=== PATIENT | female | born 1965 | race Caucasian/White ===

== ENCOUNTER → 2019-11-04 10:40 | Outpatient (BNVA) | payer MEDICARE, OTHER, SELFPAY | PROVIDERS: PCP Registered Nurse; Visit Provider Nurse Practitioner Family | DX: R35.0 Frequency of micturition (principal); N39.0 Urinary tract infection, site not specified; M25.569 Pain in unspecified knee; Z12.11 Encounter for screening for malignant neoplasm of colon; N63.0 Unspecified lump in unspecified breast | CPT/HCPCS: 81003; 87086 ==

== ENCOUNTER 2019-11-06 13:51 | Outpatient (CLI) | payer MEDICARE, OTHER, SELFPAY ==
--- NOTE | 2019-11-06 13:58 | XR_ITS ---
WS: [id number] Left knee, 3 views, 11/06/2019 Clinical Data: knee pain Comparison: None. Findings: No fractures or dislocations are seen. There is minimal narrowing of the medial joint compartment.. T he patella is intact. The soft tissues are unremarkable. There is a posterior superior patellar spur. XR/XR knee LT 3V* [id number] Impression: Minimal osteoarthritic change of the medial joint compartment and posterior pat alyssia.
== END 2019-11-06 13:52 | disposition home or self-care (01) ==
LOC: RAD 13:55
PROVIDERS: PCP Registered Nurse; Visit Provider Nurse Practitioner Family
DX: M25.562 Pain in left knee (principal)
CPT/HCPCS: 73562

== ENCOUNTER 2019-11-19 22:18 | Emergency (ER) | payer MEDICARE, OTHER, SELFPAY ==
[2019-11-19 22:34] VITALS: BP 206/119; PULSE 74; RESP 18; TEMP 37; O2SAT 97; BMI 48.1
--- NOTE | 2019-11-19 22:38 | W.ED.ABDPA2 ---
HPI - Abdominal Pain General: Chief Complaint: Abdominal Pain Stated Complaint: lower abd pain Time Seen by Provider: 11/19/19 22:34 Source: patient Mode of arrival: ambulatory Limitations: no limitations History of Present Illness: HPI narrative: Patient comes in today with pelvic pressure and discomfort. Patient states that for the last 2 to 3 days she has had this discomfort. Reports history of previous bladder ties. Patient appears well. Patient appears in mild discomfort. Review of Systems General: Reports: 10 or more systems reviewed and unremarkable except in HPI and below : Reports: pelvic pain PFS ED PFSH: Social History Smoking and tobacco status: never smoked Second hand smoke exposure: Yes Physical Exam Const: COMMON NORMALS: no apparent distress and oriented x3 GENERAL APPEARANCE: cooperative HENMT: COMMON NORMALS: normocephalic, external ears normal, EAC's normal, TM's normal bilaterally and external nose normal HEAD & SCALP: normal to inspection and normocephalic FACE & SINUS: normal facial exam NOSE: external nose normal GENERAL EAR: hearing not grossly impaired EXTERNAL EAR: Yes external ears normal EXTERNAL AUDITORY CANAL: EAC's normal TYMPANIC MEMBRANE: TM's normal bilaterally MOUTH: oral and palatal mucosa normal THROAT: posterior oropharynx normal Eye: COMMON NORMALS: PERRL and EOMs intact bilaterally PUPIL: Yes PERRL Neck/C-Spine: COMMON NORMALS: full ROM and no lymphadenopathy Lymph: LYMPHATIC: no lymphedema noted Chest: COMMONS NORMALS: inspection of chest normal and palpation of chest normal Resp: COMMON NORMALS: normal respiratory effort and clear to auscultation bilaterally AUSCULTATION: clear to auscultation bilaterally Cardio: COMMON NORMALS: regular rate and regular rhythm RATE: regular rate RHYTHM: regular rhythm GI: COMMON NORMALS: normal to inspection, nondistended, normoactive bowel sounds and non-tender : COMMON NORMALS: Yes no CVA tenderness and Yes bimanual exam normal (absent uterus) BLADDER/KIDNEY EXAM: Yes no CVA tenderness SPECULUM EXAM - VAGINA: Yes vaginal discharge (whitish mucous) BIMANUAL EXAM - VAGINA & UTERUS: Yes normal bimanual exam (absent uterus) BIMANUAL EXAM - ADNEXA, OTHER: Yes pelvic support normal Back/Pelvis: COMMON NORMALS: no CVA tenderness and thoracic and lumbar spine normal to inspection Extremity: COMMON NORMALS: normal to inspection GENERAL: No edema Neuro: COMMON NORMALS: oriented x3, moves all extremities and no focal motor deficits Psych: COMMON NORMALS: mental status grossly normal and cooperative Skin: COMMON NORMALS: no rashes or lesions noted GENERAL SKIN EXAM: no rashes or lesions noted Course Vital Signs: Vital signs: Vital Signs Temperature 98.0 F 11/20/19 00:57 Pulse Rate 65 11/20/19 00:57 Respiratory Rate 17 11/20/19 00:57 Blood Pressure 131/87 11/20/19 00:57 Pulse Oximetry 96 11/20/19 00:57 MDM - Abdominal Pain MDM Narrative: Medical decision making narrative: Patient comes in today with complaints of vaginal fullness and pressure. On exam we know whitish vaginal discharge, abdomen soft nontender, respirations are even lungs are clear to auscultation. Vital signs were normal. Differential diagnosis includes bladder prolapse, vaginal prolapse, vaginitis, urethritis, urinary tract infection. CBC was normal, CMP was normal, urinalysis was without sign of infection. Wet prep noted no trichomoniasis or yeast, but did show signs of bacterial vaginosis with clue cells. Reviewed exam with patient with recommendations for treatment with Flagyl and need for follow-up in 1 week with primary care. Patient reports understanding and agreed to plan. Lab Data: Labs: Lab Results 11/19/19 11/19/19 11/19/19 Range/Units 22:43 22:43 23:03 WBC 7.9 (4.0-10.0) 10^3/ uL RBC 4.43 (4.1-5.3) 10^6/u L Hgb 13.0 (11.5-15.3) g/dL Hct 40.2 (37.0-47.0) % MCV 90.7 (81-99) fL MCH 29.3 (28.0-34.0) pg MCHC 32.3 (30.0-36.0) g/dL RDW 12.7 (12.1-15.1) % Plt Count 205 (130-400) 10^3/c mm MPV 11.7 H (7.4-10.4) fL Neut % (Auto) 65.0 % Lymph % (Auto) 26.2 % [place] % (Auto) 6.1 % Eos % (Auto) 1.5 % Baso % (Auto) 0.8 % Neut # (Auto) 5.1 (1.8-7.7) 10^3/u L Lymph # (Auto) 2.1 (0.8-4.8) 10^3/u L [place] # (Auto) 0.5 (0.2-0.9) 10^3/u L Eos # (Auto) 0.1 (0.0-0.8) 10^3/u L Baso # (Auto) 0.1 (0.0-0.1) 10^3/u L Nucleated RBC % (a uto) 0 % Nucleated RBCs # 0.0 /100WBC Sodium 139 (136-145) mmol/L Potassium 4.1 (3.5-5.1) mmol/L Chloride 99 (98-107) mmol/L Carbon Dioxide 28 (22-29) mmol/L Anion Gap 16.1 (5-19) BUN 18 (6-20) mg/dL Creatinine 1.0 H (0.5-0.9) mg/dL GFR Calculation 57.4 L (90-130) mL/min Glucose 133 H (65-115) mg/dL Calcium 10.4 (8.5-10.5) mg/dL Total Bilirubin 0.3 (0.15-1.2) mg/dL AST 19 (0-32) U/L ALT 12 (0-33) U/L Alkaline Phosphata se 127 H (35-105) IU/L Total Protein 7.3 (6.6-8.7) g/dL Albumin 4.3 (3.5-5.2) g/dL Globulin 3.0 (1.3-4.6) g/dL Urine Color Yellow (Yellow) Urine Appearance Hazy A (CLEAR) Urine pH 5 (5-7) Ur Specific Gravit y 1.020 (1.005-1.030) Urine Protein Neg (Negative) Urine Glucose (UA) Norm (Normal) Urine Ketones Negative (Negative) Urine Blood 2+ H (Negative) Urine Nitrate Negative (Negative) Urine Bilirubin Neg (NEGATIVE) Urine Urobilinogen Norm (Negative) mg/dL Ur Leukocyte Alysha ase Negative (Negative) Urine RBC 5-10 H (0-2) /hpf Urine WBC None (0-5) /hpf Ur Squamous Epith Cells 15-25 H (0-5) Urine Bacteria 2+ H (NONE) Discharge Plan Discharge Patient Disposition: Home, Self-Care Clinical Impression: Bacterial vaginosis Condition: Stable Prescriptions: New metronidazole 500 mg tablet 500 mg PO BID 7 Days Qty: 14 RF: 0 No Action alprazolam 0.5 mg tablet 0.5 mg PO BID PRN (Reason: anxiety) Qty: 60 RF: 0 amlodipine 10 mg tablet 10 mg PO DAILY Qty: 90 RF: 1 fluoxetine 40 mg capsule 40 mg PO DAILY Qty: 90 RF: 1 furosemide 20 mg tablet 20 mg PO DAILY Qty: 90 RF: 1 lisinopril 20 mg tablet 20 mg PO BID Qty: 90 RF: 1 metformin 500 mg tablet extended release 24 hr 500 mg PO BID Qty: 90 RF: 1 pravastatin 80 mg tablet 80 mg PO DAILY Qty: 90 RF: 1 Discharge Orders: Discharge Order (Routine); Ordered 11/20/19 Ordered By: Barry Wheatley Referrals: Roopa Domínguez FNP [Primary Care Provider] - Discharge Diet: Usual diet Discharge Activity: Resume usual activity Patient Instructions: Bacterial Vaginosis (ED) Activity Restrictions/Additional Instructions: Drink plenty of fluids Activity as tolerated Follow-up with primary care in one week for recheck If you are sexually active, your partner will need treated in order not to re-infect you Discharge Date/Time: 11/20/19 01:04 Coding Level of Care Code ED Electrophysiology Technologist for Greg Fwkarina Exam Comprehensive
[2019-11-19 22:57] LABS: Basophils # 0.1 10^3/uL (0.0-0.1); Basophils % 0.8 %; Eosinophils # 0.1 10^3/uL (0.0-0.8); Eosinophils % 1.5 %; Hematocrit 40.2 % (37.0-47.0); Lymphocytes # 2.1 10^3/uL (0.8-4.8); Lymphocytes % 26.2 %; Mean Corpuscular HGB Conc 32.3 g/dL (30.0-36.0); Mean Corpuscular Hemoglobin 29.3 pg (28.0-34.0); Mean Corpuscular Volume 90.7 fL (81-99); Mean Platelet Volume 11.7 fL (7.4-10.4); Monocytes # 0.5 10^3/uL (0.2-0.9); Monocytes % 6.1 %; Neutrophils # 5.1 10^3/uL (1.8-7.7); Nucleated Red Blood Cells % 0 %; Platelet Count 205 10^3/cmm (130-400); Red Blood Count 4.43 10^6/uL (4.1-5.3); Red Cell Distribution Width 12.7 % (12.1-15.1); White Blood Count 7.9 10^3/uL (4.0-10.0)
[2019-11-19 23:16] LABS: Alanine Aminotransferase 12 U/L (0-33); Albumin Level 4.3 g/dL (3.5-5.2); Alkaline Phosphatase 127 IU/L (35-105); Anion Gap 16.1 (5-19); Aspartate Amino Transferase 19 U/L (0-32); Blood Urea Nitrogen 18 mg/dL (6-20); Calcium 10.4 mg/dL (8.5-10.5); Carbon Dioxide 28 mmol/L (22-29); Chloride 99 mmol/L (98-107); Glomerular Filtration Rate 57.4 mL/min (90-130); Glucose 133 mg/dL (65-115); Potassium 4.1 mmol/L (3.5-5.1); Sodium 139 mmol/L (136-145); Total Bilirubin 0.3 mg/dL (0.15-1.2); Total Protein 7.3 g/dL (6.6-8.7)
[2019-11-19 23:25] LABS: Blood Urine 2+ (Negative); Glucose Urine UA Norm (Normal); Ketones Urine Negative (Negative); Nitrate Urine Negative (Negative); Protein Urine Neg (Negative); Urine Appearance Hazy (CLEAR); Urine Color Yellow (Yellow); pH Urine 5 (5-7)
[2019-11-19 23:26] LABS: Add Urine Microscopic? YES; Bilirubin Urine Neg (NEGATIVE); Leukocyte Esterase Urine Negative (Negative); Urobilinogen Urine Norm (Negative)
[2019-11-19 23:36] LABS: Add Urine Culture? No; Bacteria Urine 2+; Squamous Epithelial Cell Urine 15-25 (0-5)
[2019-11-20] MEDS: metroNIDAZOLE 500 MG Tablet PO (00:52)
[2019-11-20 00:54] VITALS: BP 131/87; PULSE 65; RESP 16; TEMP 36.7; O2SAT 96
[2019-11-20 00:57] VITALS: BP 131/87; PULSE 65; RESP 17; TEMP 36.7; O2SAT 96
== END 2019-11-20 01:04 | disposition home or self-care (01) ==
PROVIDERS: Emergency Provider Nurse Practitioner Family; PCP Nurse Practitioner Family
DX: N76.0 Acute vaginitis (principal)
CPT/HCPCS: 36415; 80053; 81001; 85025; 87210; 99282; 99283; A9270

== ENCOUNTER → 2019-11-26 14:40 | Outpatient (BNVA) | payer MEDICARE, OTHER, SELFPAY | PROVIDERS: PCP Nurse Practitioner Family; Visit Provider Nurse Practitioner Family | DX: R35.0 Frequency of micturition (principal); R33.9 Retention of urine, unspecified | CPT/HCPCS: 81003 ==

== ENCOUNTER 2019-11-27 11:32 | Outpatient (CLI) | payer MEDICARE, OTHER, SELFPAY ==
--- NOTE | 2019-11-27 11:45 | MR_ITS ---
WS: [id number] MRI LEFT KNEE HISTORY: left knee pain COMPARISON: LEFT knee radiograph 11/06/2019 Anterior cruciate ligament: Intact. Posterior cruciate ligament: Intact. Medial collateral ligament: Small amount of fluid along the MCL but no tear. Posterior lateral corner structures: Intact. Medial menisci: Complex tear in the posterior horn towards the meniscal root. Tear extends to both th e superior and inferior articular surfaces. Anterior horn is normal. Lateral meniscus: Intact. Normal signal, size and shape. Extensor mechanism: Distal quadriceps tendon and patellar tendons are intact. Fluid and soft tissue: Small joint effusion at the knee. There is a moderate amount of soft tissue ed ulysses surrounding the knee and over the patella. Lobulated Summers's cyst extends over length of 3.8 cm. Osseous and articular structures: Patellofemoral compartment: Focal loss of the patellar cartilage over the eminence with underlying ma rrow edema in the patella. There is additional thinning and loss of cartilage with thinning over the medial and lateral facets. Medial compartment: Mild narrowing of the medial compartment. Marginal osteophytes at the tibial plat eau and femoral condyle. Very subtle marrow edema along the weightbearing surface of the medial femor al condyle. Lateral compartment: Mild narrowing of the cartilage remaining intact. Marginal osteophytes of the ti bial plateau and femoral condyle. MR/MR knee LT wo con* [id number] IMPRESSION: 1. Complex tear posterior horn medial meniscus towards the meniscal root. 2. Small joint effusion and Summers's cyst. 3. Moderate chondromalacia patella. Most significant loss of cartilage with un derlying marrow edema involving the patellar eminence. 4. Mild medial and lateral compartment osteoarthritis.
== END 2019-11-27 11:33 | disposition home or self-care (01) ==
LOC: RADSHAW 11:32
PROVIDERS: PCP Nurse Practitioner Family; Visit Provider Orthopaedic Surgery
DX: S83.232A Complex tear of medial meniscus, current injury, left knee, initial encounter (principal); X58.XXXA Exposure to other specified factors, initial encounter; M25.462 Effusion, left knee; M71.22 Synovial cyst of popliteal space [Baker], left knee; M94.262 Chondromalacia, left knee; M17.12 Unilateral primary osteoarthritis, left knee; M25.562 Pain in left knee
CPT/HCPCS: 73721

== ENCOUNTER → 2019-12-02 13:46 | Outpatient (BNVA) | payer MEDICARE, OTHER, SELFPAY | PROVIDERS: PCP Nurse Practitioner Family; Visit Provider Family Medicine | DX: R50.9 Fever, unspecified (principal); R05 Cough; J10.1 Influenza due to other identified influenza virus with other respiratory manifestations | CPT/HCPCS: 87804 ==

== ENCOUNTER → 2019-12-23 13:37 | Outpatient (BNVA) | payer MEDICARE, OTHER, SELFPAY | PROVIDERS: PCP Nurse Practitioner Family; Visit Provider Urology | DX: R33.8 Other retention of urine (principal); R31.0 Gross hematuria; N20.1 Calculus of ureter; N39.8 Other specified disorders of urinary system | CPT/HCPCS: 81001 ==

== ENCOUNTER → 2019-12-25 12:51 | Outpatient (BNVA) | payer MEDICARE, OTHER, SELFPAY | PROVIDERS: PCP Nurse Practitioner Family; Visit Provider Urology | DX: N20.1 Calculus of ureter (principal) | CPT/HCPCS: 82365 ==

== ENCOUNTER → 2020-01-27 10:15 | Outpatient (BNVA) | payer MEDICARE, OTHER, SELFPAY | PROVIDERS: PCP Nurse Practitioner Family; Referring Provider Nurse Practitioner Family; Visit Provider Podiatrist Foot & Ankle Surgery | DX: L60.3 Nail dystrophy (principal) | CPT/HCPCS: 87107; 87210 ==

== ENCOUNTER 2020-03-17 06:14 | Day surgery (SDC) | payer MEDICARE, OTHER, SELFPAY ==
[2020-03-16 12:26] VITALS: BMI 47.1
[2020-03-17] VITALS (9 sets, daily range): BP systolic 124–152; BP diastolic 79–98; PULSE 62–72; RESP 15–18; TEMP 36.3–36.4; O2SAT 92–100
--- NOTE | 2020-03-17 06:37 | ANES.PREANE2 ---
Pre-Anesthetic Assessment Pre-Anesthetic Assessment: Height/Weight: Height 1.68 m Weight 132.449 kg Temp Pulse Resp BP Pulse Ox 97.5 F L 72 18 152/98 100 03/17/20 06:22 03/17/20 06:22 03/17/20 06:22 03/17/20 06:22 03/17/20 06:22 Preop Diagnosis: Left medial meniscal tear/osteoarthritis Proposed Procedure: Operation Date: 03/17/20 07:00 Proposed Procedures p left knee arthroscopy with medial meniscectomy ([id number])S83.242A(Left) - Sen Hodges MD Last intake: Intake Last Liquid Date 03/16/20 Last Liquid Time 22:00 Last Solid Date 03/16/20 Last Solid Time 22:00 Social: Social History: No alcohol and No tobacco Exam: Pre-Anes Outpt Exam: alert, oriented x 3, clear to auscultation bilaterally and regular rate & rhythm Airway: Submandibular: WNL Cervical ROM: WNL MP: 1 Dentition: False (upper) History/ROS: No significant history except as noted Pulmonary: Pulmonary: None reported CV/HEM: CV/HEM: HTN : : None reported Hepatic: Hepatic: None reported GI: GI: None reported Metabolic: Metabolic: DM, Hyperlipidemia and Morbid obesity Musc/skel: Musc/skel: OA/DJD Neuropsych: Neuropsych: Anxiety, Depression and None reported Anesthetic Plan: ASA status: 3 Anesthesia: Anesthesia Evaluation and General Risk of > 500 ml blood loss (7ml/kg in children): No PFSH Anesthesia PFSH: Medical History Calculus of distal ureter Gross hematuria HTN (hypertension), benign Type 2 diabetes mellitus without complication, without long-term current use of insulin Vaginal voiding Surgical History History of bladder repair surgery History of carpal tunnel release of both wrists History of colonoscopy with polypectomy (~2008) S/P TRE-BSO Status post right rotator cuff repair Family History Family/Other Cancer uncle- colon cancer Mother Cancer bladder Father , at age 84 COPD (chronic obstructive pulmonary disease) Denies family history of Anesthesia complication Bleeding disorder Social History Smoking and tobacco status: never smoked Second hand smoke exposure: Yes Alcohol intake: never Marital status: Current occupational status: unemployed History of recent travel: No Data Anesthesia Cardiac Studies: No Data to Display
[2020-03-17] MEDS: sodium chloride 0.9% 1,000 ML 30 ML IV (06:38)
[2020-03-17 06:42] LABS: Glucose Point of Care 110 mg/dL (70-110)
--- NOTE | 2020-03-17 07:02 | P.HP_ITS ---
Same Day Surgery H&P Indication for Procedure/HPI DATE OF PROCEDURE: March 17, 2020 CHIEF COMPLAINT/INDICATIONFOR SURGICAL PROCEDURE: Left knee pain failing to respond to conservative measures PREOP DIAGNOSIS: Left medial meniscal tear/osteoarthritis PLANNED PROCEDRUE: Operation Date: 03/17/20 07:00 Proposed Procedures p left knee arthroscopy with medial meniscectomy ([id number])S83.242A(Left) - Sen Hodges MD Medications/Allergies* Home Medications Medication Instructions Recorded Confirmed Type metformin 500 mg PO BID 12/08/19 03/17/20 History terbinafine HCl 250 mg PO DAILY 03/16/20 03/17/20 History Allergies/Adverse Reactions Allergy/AdvReac Type Severity Reaction Status Date / Time Cephalosporins Allergy Unknown Verified 01/27/20 10:08 levofloxacin [From Levaquin] Allergy Unknown Verified 01/27/20 10:08 Current Medications: Generic Name Dose Route Start Last Admin Trade Name Freq PRN Reason Stop Dose Admin Sodium Chloride 1,000 mls @ 30 mls/hr 03/17/20 06:00 03/17/20 06:38 Sodium Chloride 0.9% IV 03/18/20 05:59 30 mls/hr .Q24H MARYANNE Administration Pertinent History/Comorbid Conditions* Medical History (Updated 12/23/19 @ 14:10 by Ralph Morales MD) Calculus of distal ureter Gross hematuria HTN (hypertension), benign Type 2 diabetes mellitus without complication, without long-term current use of insulin Vaginal voiding Surgical History (Updated 11/17/19 @ 15:32 by Giovanni Borden MD) History of bladder repair surgery History of carpal tunnel release of both wrists History of colonoscopy with polypectomy (~2008) S/P TRE-BSO Status post right rotator cuff repair Family History (Updated 12/23/19 @ 13:33 by Alma Rizo LPN) Father, at age 84 COPD (chronic obstructive pulmonary disease) Father Cancer Family/Other uncle- colon cancer Mother bladder Denies family history of Anesthesia complication Bleeding disorder Social History Smoking and tobacco status: never smoked Second hand smoke exposure: Yes Alcohol intake: never Marital status: Current occupational status: unemployed History of recent travel: No Pertinent Exam Findings alert, oriented x 3, clear to auscultation bilaterally and regular rate & rhythm Recommendations Surgery/Procedure today Coding Level of Care Code Acute Manager Culture for Rafg Soco
[2020-03-17] MEDS: clindamycin 600 MG/50 ML PREMIX 100 MG IV (07:03)
[2020-03-17] MEDS: morphine 4 mg/mL SDV 1 mL 8 MG XX (07:15)
--- NOTE | 2020-03-17 08:12 | P.OP_ITS ---
Operative Report Date of procedure: March 17, 2020 Pre-op Diagnosis: Left medial meniscal tear/osteoarthritis Post-op diagnosis: same Post-op Diagnosis: Additional degenerative tearing was seen in the central third of the lateral meniscus Post-op Findings: Medial meniscal tear, lateral meniscal tear, grade IV chondromalacia medial femoral condyle, grade III chondromalacia patella and trochlea Procedure Done: Arthroscopic left medial and lateral meniscectomy, arthroscopic chondroplasty medial femoral condyle, patella, and trochlea Pathology: none sent Surgeon: Sen Hodges Anesthesia: General Estimated blood loss (mL): 10 Tourniquet time (min): 0 Complications: None Findings: The patient had complex tearing of her left posterior third medial meniscus and root involving approximately the central 70%. She had areas of exposed subchondral bone over the medial femoral condyle with unstable peripheral flaps and fissures. He had marked thinning of the cartilage of the patella and trochlea globally but no exposed subchondral bone and unstable peripheral flaps of cartilage. She had a complex degenerative tearing the c entral third of the lateral meniscus but no significant unstable flaps or fissures. Disposition: PACU Procedure: The patient was taken to the operating room and given a general anesthesia. Her knee was prepped and infiltrated with 30 cc of 0.5% Marcaine and 10 mg of morphine. Leg was prepped and draped in the usual fashion. She was 600 mg of clindamycin. A timeout was performed. Knee was initially entered through the inferior medial and inferior lateral portal. The diagnostic portion of the arthroscopy was performed. The tearing of the posterior third of the meniscus of the root was identified. As the patient had exposed subchondral bone over the medial femoral condyle she was not thought to be a candidate for repair. Utilizing a basket and [employer] Werewolf probe unstable flaps of meniscus in the posterior third were debrided back leaving approximately 30% of the meniscus behind. Tension was then focused over the medial femoral condyle. Utilizing incisor shaver and [employer] Werewolf probe unstable peripheral flaps were debrided back and stabilized. Irregular cartilage edges over the medial femoral condyle in the area of exposed subchondral bone were also debrided back with the [employer] Werewolf. The leg was placed in a [id number] position. Degenerative meniscal tearing was seen centrally in the lateral meniscus. This was cleaned up with an incisor shaver and [employer] Werewolf probe. There is no significant chondromalacia to benefit from additional debridement. Final attention was paid to the patella and trochlea. Using the incisor shaver and [employer] Werewolf unstable flaps and fissures were removed from the medial and lateral trochlea and irregular cartilage globally about the patella was lightly debrided back. The knee was irrigated with saline. Portals were closed with 3-0 Prolene. Sterile dressings were applied. The patient was extubated taken recovery in stable condition.
[2020-03-17] MEDS: oxyCODONE-APAP 5-325 mg Tablet 1 TAB PO (09:26)
== END 2020-03-17 09:46 | disposition home or self-care (01) ==
PROVIDERS: PCP Nurse Practitioner Family; Visit Provider Orthopaedic Surgery
PROC: (CPT 29870; principal; 2020-03-17 07:00)
DX: S83.242A Other tear of medial meniscus, current injury, left knee, initial encounter (principal); E11.9 Type 2 diabetes mellitus without complications; Z79.84 Long term (current) use of oral hypoglycemic drugs; I10 Essential (primary) hypertension; E78.5 Hyperlipidemia, unspecified; M19.90 Unspecified osteoarthritis, unspecified site; F41.9 Anxiety disorder, unspecified; F32.9 Major depressive disorder, single episode, unspecified
CPT/HCPCS: 29880; 12345; 36416; 82962; J2001; J2270; J2704; J3010; J3490; J7030

== ENCOUNTER 2020-04-07 09:22 | Outpatient (RCR) | payer MEDICARE, OTHER, SELFPAY | END 2020-04-28 13:49 | disposition home or self-care (01) | LOC: SPT 09:22 | PROVIDERS: PCP Nurse Practitioner Family; Referring Provider Orthopaedic Surgery; Visit Provider Orthopaedic Surgery | DX: Z47.89 Encounter for other orthopedic aftercare (principal) | CPT/HCPCS: 97110; 97161; G0283 ==

== ENCOUNTER → 2020-04-19 11:04 | Outpatient (BNVA) | payer MEDICARE, OTHER, SELFPAY | PROVIDERS: PCP Nurse Practitioner Family; Visit Provider Nurse Practitioner Family | DX: Z79.899 Other long term (current) drug therapy (principal); M25.569 Pain in unspecified knee | CPT/HCPCS: 80053; 80061; 82550; 83036 ==

== ENCOUNTER 2020-05-07 12:44 | Emergency (ER) | payer MEDICARE, OTHER, SELFPAY ==
[2020-05-07 12:56] VITALS: BP 146/89; PULSE 66; RESP 18; TEMP 36.7; O2SAT 100; BMI 46.7
--- NOTE | 2020-05-07 13:08 | W.ED.EXTPRO ---
HPI - Extremity Problem General: Chief complaint: Extremity Problem,Nontraumatic Stated complaint: left back leg/knee surgery 3 month post Time Seen by Provider: 05/07/20 12:55 Source: patient Mode of arrival: wheelchair Limitations: no limitations History of Present Illness: HPI Narrative: Patient is a 54-year-old female who presents to ED today with complaints of left leg swelling and pain to her left posterior ankle. Patient tells me she had knee surgery on her left knee by Dr. Hodges on 03/17. She has been following up with him as directed. She has recently underwent a several week course of physical therapy. Patient tells me yesterday she was walking when she felt a strain to her left posterior ankle. She states she has barely been able to ambulate on the leg since. She is complaining of swelling to the left leg however she has had this since the surgery. She does feel like it is slightly worse today. She has not noticed any redness or heat to the extremity. Reports some mild calf pain. MD Complaint: extremity pain and extremity swelling Onset (ago): day(s) (yesterday ) Pain Consistency: constant Location: left and lower extremity Relieving factors: immobilization Exacerbating factors: range of motion, weight bearing and walking Associated symptoms: Deny chest pain or fever(s) Review of Systems Const: Denies: fever(s) or chills Card: Denies: chest pain Resp: Denies: dyspnea Musc: Reports: extremity pain and extremity swelling Neuro: Denies: numbness in extremities, weakness in extremities or sensory changes [facility] ED PFSH: Medical History (Updated 05/07/20 @ 14:09 by CHAO [place]) Anxiety Calculus of distal ureter Gross hematuria HTN (hypertension), benign Knee pain Type 2 diabetes mellitus without complication, without long-term current use of insulin Vaginal voiding Surgical History History of bladder repair surgery History of carpal tunnel release of both wrists History of colonoscopy with polypectomy (~2008) S/P TRE-BSO Status post right rotator cuff repair Family History Family/Other Cancer uncle- colon cancer Mother Cancer bladder Father , at age 84 COPD (chronic obstructive pulmonary disease) Denies family history of Anesthesia complication Bleeding disorder Social History Smoking and tobacco status: never smoked Second hand smoke exposure: Yes Alcohol intake: never Marital status: Current occupational status: unemployed History of recent travel: No Physical Exam Const: COMMON NORMALS: no acute distress, patient oriented x3, no limitations and alert Extremity: GENERAL: Yes normal exam except as noted OTHER: mild swelling noted to L LE when compared to R; there is no color/temp changes between extremities; knee joint is not erythematous or warm; she has no localized tenderness to her calf; she has pain around her L Achilles tendon but she is able to flex/ext ankle although this does elicit pain; she has no evidence for tendon rupture at this time Neuro: COMMON NORMALS: patient oriented x3, moves all extremities, no focal motor deficits and no sensory deficits noted SENSORIUM/ORIENTATION: Yes alert GAIT: Yes Unable to assess gait Skin: COMMON NORMALS: no rashes or lesions noted GENERAL SKIN EXAM: no rashes or lesions noted Course Vital Signs: Vital signs: Vital Signs Temperature 98.0 F 05/07/20 12:56 Pulse Rate 55 L 05/07/20 14:15 Respiratory Rate 18 05/07/20 14:15 Blood Pressure 155/95 05/07/20 14:15 Pulse Oximetry 97 05/07/20 14:15 MDM - Extremity (Nontraumatic) MDM Narrative: Medical decision making narrative: We will try and get pt appointment with ortho sooner than 05/18 but Tracie is out of the office until then. Recommend RICE, ankle brace, and weight bearing as tolerated. Imaging Data^: US L LE venous: My impression: Kunal Gamino US tech-no DVT present, Summers's Cyst Discharge Plan Discharge Patient Disposition: Home Clinical Impression: Synovial cyst of popliteal space [Summers], left knee, Swelling of left lower extremity Strain of Achilles tendon Qualifiers: Encounter type: initial encounter Laterality: left Qualified Code(s): S86.012A - Strain of left Achilles tendon, initial encounter Condition: Stable Prescriptions: No Action amlodipine 10 mg tablet 10 mg PO DAILY Qty: 90 RF: 1 fluoxetine 40 mg capsule 40 mg PO DAILY Qty: 90 RF: 1 pravastatin 80 mg tablet 80 mg PO DAILY Qty: 90 RF: 1 meloxicam 7.5 mg tablet 7.5 mg PO DAILY Qty: 30 RF: 0 alprazolam 0.5 mg tablet 0.5 mg PO BID PRN (Reason: anxiety) Qty: 60 RF: 0 terbinafine HCl 250 mg tablet 250 mg PO DAILY Qty: 30 RF: 1 lisinopril 20 mg tablet See Rx Instructions .ROUTE .COMPLEX Qty: 90 RF: 0 metformin 500 mg tablet extended release 24 hr 500 mg PO BID Qty: 60 RF: 0 furosemide 20 mg tablet See Rx Instructions .ROUTE .COMPLEX Qty: 90 RF: 0 oxycodone-acetaminophen [Percocet] 5-325 mg tablet 1 tab PO Q4H PRN (Reason: pain) Qty: 30 RF: 0 Discharge Orders: Discharge Order (Routine); Ordered 05/07/20 Ordered By: Katie Saravia Referrals: Roopa Domínguez FNP [Primary Care Provider] - Patient Instructions: Achilles Tendonitis, Ankle Exercises (GEN), RICE Therapy (ED) Activity Restrictions/Additional Instructions: As discussed we will try and get you a sooner orthopedic appointment but may not be able to accomplish this. If not, please keep your appointment with Dr. Hodges on the . Discharge Date/Time: 05/07/20 14:16 Coding Level of Care Code ED Tumble Tailstock Turret Lathe Operator for Greg Wan
--- NOTE | 2020-05-07 13:15 | USCV_ITS ---
Murali Skylar Age: 54 Gender: F : 1965 Exam Date: 05/07/2020 13:44 Ordering Phys: Katie Saravia Technologist: Rosalie Jackson Exam Location: [facility] [place]_ Indication: SWELLING HISTORY: Lower extremity pain. PROCEDURES: Venous duplex imaging was performed in only the left lower extremity. The following venous structures were evaluated: common femoral vein, profunda vein, proximal portion of the greater saphenous vein, superficial femoral vein, and the popliteal vein. In addition, the posterior tibial and peroneal trunk were evaluated. Serial compression, augmentation maneuvers, and spectral Doppler flow evaluation were performed. FINDINGS: Normal 2-D Doppler and augmentation and compressibility throughout the lower extremity venous structures. Additional imaging through the proximal calf veins also reveals no thrombus. Limited evaluation of the greater saphenous vein is patent with no thrombus. There is a left lower extremity Summers's cyst noted. Complex cystic mass with low level echos and no vascularity measuring 4.0 x 1.0 cm in the left popliteal fossa. CONCLUSIONS No DVT left lower extremity. Left popliteal fossa Summers's cyst. Dr. Tatiana Mccurdy DO (Electronically Signed) Final Date: 07 May 2020 15:04 S
--- NOTE | 2020-05-07 13:31 | DCPLANNER ---
wardrobe manager was asked to call the ortho clinic, to see if patient could be seen any sooner than May 18. wardrobe manager called the ortho clinic, spoke with Pat, was told that physician would not be back in the office until May 18, so appointment could not be moved up with Dr. Hodges. wardrobe manager asked if the patients information could be reviewed by another physician. wardrobe manager was told that patients information would be printed and given to Dr. Locke to review.
--- NOTE | 2020-05-07 13:45 | PC.NURSE ---
Ultrasound at bedside at 1339
[2020-05-07 14:15] VITALS: BP 155/95; PULSE 55; RESP 18; O2SAT 97
--- NOTE | 2020-05-10 08:11 | DCPLANNER ---
Patient has a follow up appointment scheduled for Monday, May 18, 2020 at 1:[address] Hodges at ortho. Clinic will call patient with appointment information.
--- NOTE | 2020-06-24 07:58 | DCPLANNER ---
Patient had a follow up appointment scheduled for 05.18.20 with ortho - patient did attend appointment.
== END 2020-05-07 14:16 | disposition home or self-care (01) ==
PROVIDERS: Emergency Provider Physician Assistant; PCP Nurse Practitioner Family
DX: M71.22 Synovial cyst of popliteal space [Baker], left knee (principal); S86.012A Strain of left Achilles tendon, initial encounter; I10 Essential (primary) hypertension; E11.9 Type 2 diabetes mellitus without complications; Z77.22 Contact with and (suspected) exposure to environmental tobacco smoke (acute) (chronic); X50.9XXA Other and unspecified overexertion or strenuous movements or postures, initial encounter
CPT/HCPCS: 12345; 93971; 99282

== ENCOUNTER 2020-05-25 07:47 | Day surgery (SDC) | payer MEDICARE, OTHER, SELFPAY ==
[2020-05-21 12:55] VITALS: BMI 46.7
[2020-05-25 08:00] VITALS: BP 169/109; PULSE 63; RESP 18; TEMP 36.7; O2SAT 97
[2020-05-25] MEDS: sodium chloride 0.9% 1,000 ML 30 ML IV (08:21)
[2020-05-25 08:22] LABS: Glucose Point of Care 112 mg/dL (70-110)
--- NOTE | 2020-05-25 08:37 | W.PM.OPSFHP ---
Same Day Surgery H&P Indication for Procedure/HPI DATE OF PROCEDURE: May 25, 2020 CHIEF COMPLAINT/INDICATIONFOR SURGICAL PROCEDURE: Screening colonoscopy PREOP DIAGNOSIS: Left medial meniscal tear/osteoarthritis PLANNED PROCEDRUE: Operation Date: 05/25/20 09:30 Proposed Procedures p Colonoscopy 32963 Z12.11(Not Applicable) - Giovanni Borden MD Medications/Allergies* Allergies/Adverse Reactions Allergy/AdvReac Type Severity Reaction Status Date / Time Cephalosporins Allergy Unknown Verified 05/18/20 15:21 levofloxacin [From Levaquin] Allergy Unknown Verified 05/18/20 15:21 Current Medications: Generic Name Dose Route Start Last Admin Trade Name Freq PRN Reason Stop Dose Admin Sodium Chloride 1,000 mls @ 30 mls/hr 05/24/20 13:15 05/25/20 08:21 Sodium Chloride 0.9% IV 05/25/20 13:14 30 mls/hr .Q24H MARYANNE Administration Pertinent History/Comorbid Conditions* Medical History (Updated 05/25/20 @ 08:37 by Giovanni Borden MD) Anxiety Calculus of distal ureter Gross hematuria HTN (hypertension), benign Type 2 diabetes mellitus without complication, without long-term current use of insulin Vaginal voiding Surgical History (Updated 11/17/19 @ 15:32 by Giovanni Borden MD) History of bladder repair surgery History of carpal tunnel release of both wrists History of colonoscopy with polypectomy (~2008) S/P TRE-BSO Status post right rotator cuff repair Family History (Updated 12/23/19 @ 13:33 by Alma Rizo LPN) Father, at age 84 COPD (chronic obstructive pulmonary disease) Father Cancer Family/Other uncle- colon cancer Mother bladder Denies family history of Anesthesia complication Bleeding disorder Social History Smoking and tobacco status: never smoked Second hand smoke exposure: Yes Alcohol intake: never Marital status: Current occupational status: unemployed History of recent travel: No Pertinent Exam Findings alert, oriented x 3 and regular rate & rhythm Recommendations Surgery/Procedure today Coding Level of Care Code Acute Environmental Compliance Officer for Greg Wan
--- NOTE | 2020-05-25 08:45 | ANES.PREANE2 ---
Pre-Anesthetic Assessment Pre-Anesthetic Assessment: Height/Weight: Height 1.68 m Weight 131.542 kg Temp Pulse Resp BP Pulse Ox 98.0 F 63 18 169/109 97 05/25/20 08:00 05/25/20 08:00 05/25/20 08:00 05/25/20 08:00 05/25/20 08:00 Preop Diagnosis: Family history of colon cancer Proposed Procedure: Operation Date: 05/25/20 09:30 Proposed Procedures p Colonoscopy 36619 Z12.11(Not Applicable) - Giovanni Borden MD Familial anesthetic complications: none Was Beta Laura taken within 24 hours: N/A Last intake: Intake Last Liquid Date 05/24/20 Last Liquid Time 23:00 Last Solid Date 05/23/20 Social: Social History: No alcohol and No tobacco Exam: Pre-Anes Outpt Exam: alert, oriented x 3, clear to auscultation bilaterally and regular rate & rhythm Airway: Submandibular: WNL Cervical ROM: WNL MP: 1 Dentition: False (upper) Pulmonary: Pulmonary: None reported CV/HEM: CV/HEM: HTN : : None reported Hepatic: Hepatic: None reported GI: GI: None reported Metabolic: Metabolic: DM (type II) and Morbid obesity Musc/skel: Musc/skel: OA/DJD Neuropsych: Neuropsych: Anxiety and Depression Anesthetic Plan: ASA status: 3 Anesthesia: MAC Risk of > 500 ml blood loss (7ml/kg in children): No Meds/Allergies Current Medications: Current Medications Generic Name Dose Route Start Last Admin Trade Name Freq PRN Reason Stop Dose Admin Sodium Chloride 1,000 mls @ 30 ml s/hr 05/24/20 13:15 05/25/20 08:21 Sodium Chloride 0.9% IV 05/25/20 13:14 30 mls/hr .Q24H MARYANNE Administration PFSH Anesthesia PFSH: Medical History (Updated 05/25/20 @ 08:37 by Giovanni Borden MD) Anxiety Calculus of distal ureter Gross hematuria HTN (hypertension), benign Type 2 diabetes mellitus without complication, without long-term current use of insulin Vaginal voiding Surgical History History of bladder repair surgery History of carpal tunnel release of both wrists History of colonoscopy with polypectomy (~2008) S/P TRE-BSO Status post right rotator cuff repair Family History Family/Other Cancer uncle- colon cancer Mother Cancer bladder Father , at age 84 COPD (chronic obstructive pulmonary disease) Denies family history of Anesthesia complication Bleeding disorder Social History Smoking and tobacco status: never smoked Second hand smoke exposure: Yes Alcohol intake: never Marital status: Current occupational status: unemployed History of recent travel: No Data Anesthesia Other Labs: Laboratory Results - last 48 hr 05/25/20 08:13 POC Glucose 112 Cardiac Studies: No Data to Display
[2020-05-25 09:09] VITALS: BP 136/87; PULSE 59; RESP 16; TEMP 36.9; O2SAT 99
--- NOTE | 2020-05-25 09:12 | ANE.PACU2 ---
Inpatient post-anesthesia follow up: Airway intact: Yes Vital signs: Temperature 98.0 F Pulse Rate 63 Respiratory Rate 18 Blood Pressure 169/109 Pulse Oximetry 97 Oxygen Delivery Me thod Room Air Oxygen Flow Rate Fraction of Inspir ed Oxygen Hydration adequate: Yes Nausea and vomiting: No Pain level: 1 Mental status: Baseline
[2020-05-25 09:16] VITALS: BP 131/87; PULSE 61; RESP 18; O2SAT 99
== END 2020-05-25 09:25 | disposition home or self-care (01) ==
PROVIDERS: PCP Nurse Practitioner Family; Visit Provider Surgery
PROC: 0DJD8ZZ Inspection of Lower Intestinal Tract, Via Natural or Artificial Opening Endoscopic (ICD-10-PCS; CPT 45378; principal; 2020-05-25 09:30)
DX: Z12.11 Encounter for screening for malignant neoplasm of colon (principal); Z80.0 Family history of malignant neoplasm of digestive organs; K57.30 Diverticulosis of large intestine without perforation or abscess without bleeding; F41.9 Anxiety disorder, unspecified; I10 Essential (primary) hypertension; E11.9 Type 2 diabetes mellitus without complications; E66.01 Morbid (severe) obesity due to excess calories; M19.90 Unspecified osteoarthritis, unspecified site; F32.9 Major depressive disorder, single episode, unspecified
CPT/HCPCS: 12345; 36416; 45378; 82962; J2704

== ENCOUNTER → 2020-07-20 10:23 | Outpatient (BNVA) | payer MEDICARE, OTHER, SELFPAY | PROVIDERS: PCP Nurse Practitioner Family; Visit Provider Family Medicine Adult Medicine | DX: E66.01 Morbid (severe) obesity due to excess calories (principal); Z68.42 Body mass index [BMI] 45.0-49.9, adult; E78.5 Hyperlipidemia, unspecified; M17.12 Unilateral primary osteoarthritis, left knee; N18.2 Chronic kidney disease, stage 2 (mild); E11.22 Type 2 diabetes mellitus with diabetic chronic kidney disease; I12.9 Hypertensive chronic kidney disease with stage 1 through stage 4 chronic kidney disease, or unspecified chronic kidney disease | CPT/HCPCS: 80053; 80061; 84443; 85025 ==

== ENCOUNTER → 2020-09-06 13:31 | Outpatient (BNVA) | payer MEDICARE, OTHER, SELFPAY | PROVIDERS: PCP Nurse Practitioner Family; Visit Provider Podiatrist Foot & Ankle Surgery | DX: M19.072 Primary osteoarthritis, left ankle and foot (principal) | CPT/HCPCS: 73630 ==

== ENCOUNTER 2020-09-06 14:25 | Outpatient (CLI) | payer MEDICARE, OTHER, SELFPAY | END 2020-09-06 14:26 | disposition home or self-care (01) | LOC: SPT 14:26 | PROVIDERS: PCP Nurse Practitioner Family; Visit Provider Podiatrist Foot & Ankle Surgery | DX: Z46.89 Encounter for fitting and adjustment of other specified devices (principal); M76.60 Achilles tendinitis, unspecified leg | CPT/HCPCS: 97760; L4361 ==

== ENCOUNTER → 2020-10-07 11:44 | Outpatient (BNVA) | payer MEDICARE, OTHER, SELFPAY | PROVIDERS: PCP Nurse Practitioner Family; Visit Provider Nurse Practitioner Family | DX: Z20.828 Contact with and (suspected) exposure to other viral communicable diseases (principal); J06.9 Acute upper respiratory infection, unspecified | CPT/HCPCS: 87635 ==

== ENCOUNTER → 2021-04-30 12:43 | Outpatient (BNVA) | payer MEDICARE, OTHER, SELFPAY | PROVIDERS: PCP Family Medicine Adult Medicine; Visit Provider Nurse Practitioner | DX: B34.9 Viral infection, unspecified (principal); Z20.822 Contact with and (suspected) exposure to COVID-19 | CPT/HCPCS: 87635 ==

== ENCOUNTER → 2021-05-17 12:33 | Outpatient (BNVA) | payer MEDICARE, OTHER, SELFPAY | PROVIDERS: PCP Family Medicine Adult Medicine; Visit Provider Family Medicine Adult Medicine | DX: I12.9 Hypertensive chronic kidney disease with stage 1 through stage 4 chronic kidney disease, or unspecified chronic kidney disease (principal); N18.2 Chronic kidney disease, stage 2 (mild); E66.01 Morbid (severe) obesity due to excess calories; Z68.42 Body mass index [BMI] 45.0-49.9, adult; E11.69 Type 2 diabetes mellitus with other specified complication; E78.5 Hyperlipidemia, unspecified; R60.0 Localized edema; E11.22 Type 2 diabetes mellitus with diabetic chronic kidney disease | CPT/HCPCS: 80053; 80061; 83036; 84443; 85025 ==

== ENCOUNTER → 2021-10-17 14:10 | Outpatient (BNVA) | payer MEDICARE, OTHER, SELFPAY | PROVIDERS: PCP Family Medicine Adult Medicine; Visit Provider Nurse Practitioner Family | DX: Z20.822 Contact with and (suspected) exposure to COVID-19 (principal) | CPT/HCPCS: 87635 ==

== ENCOUNTER 2021-10-21 09:36 | Outpatient (CLI) | payer MEDICARE, OTHER, SELFPAY ==
[2021-10-21 09:49] VITALS: BP 128/73; BP 134/75; PULSE 59; PULSE 71; RESP 16; TEMP 36.2; TEMP 36.6; O2SAT 96; O2SAT 97; BMI 47.2
[2021-10-21 10:34] VITALS: BP 125/67; PULSE 57; RESP 16; TEMP 36.2; O2SAT 125
== END 2021-10-21 11:34 | disposition home or self-care (01) ==
PROVIDERS: PCP Family Medicine Adult Medicine; Visit Provider Nurse Practitioner Family
DX: U07.1 COVID-19 (principal)
CPT/HCPCS: 96365

== ENCOUNTER → 2022-01-11 13:10 | Outpatient (BNVA) | payer MEDICARE, OTHER, SELFPAY | PROVIDERS: PCP Family Medicine Adult Medicine; Visit Provider Orthopaedic Surgery | DX: M17.12 Unilateral primary osteoarthritis, left knee (principal) | CPT/HCPCS: 99213 ==

== ENCOUNTER → 2023-01-31 08:23 | Outpatient (BNVA) | payer MEDICARE, OTHER, SELFPAY | PROVIDERS: PCP Family Medicine Adult Medicine; Visit Provider Family Medicine Adult Medicine | DX: I10 Essential (primary) hypertension (principal); E11.9 Type 2 diabetes mellitus without complications; F41.9 Anxiety disorder, unspecified; F51.02 Adjustment insomnia; F32.9 Major depressive disorder, single episode, unspecified; E11.69 Type 2 diabetes mellitus with other specified complication; E78.5 Hyperlipidemia, unspecified; E66.9 Obesity, unspecified; N18.2 Chronic kidney disease, stage 2 (mild); M17.12 Unilateral primary osteoarthritis, left knee | CPT/HCPCS: 80053; 83036; 84443; 85025 ==

== ENCOUNTER 2023-09-17 08:39 | Outpatient (CLI) | payer MEDICARE, OTHER, SELFPAY ==
--- NOTE | 2023-09-17 08:41 | MM_ITS ---
WS: [id number] BILATERAL SCREENING DIGITAL TOMOSYNTHESIS MAMMOGRAM WITH CAD HISTORY: screening due COMPARISON: None available. Bilateral CC and MLO views with tomosynthesis and synthetic mammography submitted. Computer aided det ection analyzed. Breast composition: There are scattered areas of fibroglandular density. No suspicious masses, microc alcifications or architectural distortion. IMPRESSION: MM/[place] [id number] BI-RADS: 2-Benign FOLLOW UP: 1 Year Follow-up
== END 2023-09-17 08:40 | disposition home or self-care (01) ==
LOC: RAD 08:39
PROVIDERS: PCP Family Medicine Adult Medicine; Visit Provider Family Medicine Adult Medicine
DX: Z12.31 Encounter for screening mammogram for malignant neoplasm of breast (principal)
CPT/HCPCS: 77063; 77067

== ENCOUNTER → 2024-04-30 16:12 | Outpatient (BNVA) | payer MEDICARE, OTHER, SELFPAY | PROVIDERS: PCP Family Medicine Adult Medicine; Visit Provider Family Medicine Adult Medicine | DX: I10 Essential (primary) hypertension (principal); E11.9 Type 2 diabetes mellitus without complications; N18.2 Chronic kidney disease, stage 2 (mild) | CPT/HCPCS: 80053; 83036; 85025 ==

== ENCOUNTER → 2024-11-21 10:03 | Outpatient (BNVA) | payer MEDICARE, OTHER, SELFPAY | PROVIDERS: PCP Family Medicine; Visit Provider Family Medicine | DX: E11.9 Type 2 diabetes mellitus without complications (principal); E11.69 Type 2 diabetes mellitus with other specified complication; E78.5 Hyperlipidemia, unspecified; I10 Essential (primary) hypertension; N18.2 Chronic kidney disease, stage 2 (mild); R60.0 Localized edema; F33.1 Major depressive disorder, recurrent, moderate | CPT/HCPCS: 80053; 80061; 82043; 83036; 84439; 84443; 85025 ==

== ENCOUNTER 2024-11-27 09:18 | Outpatient (CLI) | payer MEDICARE, OTHER, SELFPAY ==
--- NOTE | 2024-11-27 09:20 | MM_ITS ---
WS: [id number] Bilateral screening 3D tomosynthesis digital mammogram, 11/27/2024 9:32 AM Clinical Data: screening Comparison: 09/17/2023, 01/10/2022, 06/17/2020. Findings: No spiculated masses or clustered calcifications are seen. There are no secondary signs of carcinoma. MM/MM scr BI tomosynthesis [id number] Impression: Negative bilateral mammogram unchanged. Recommend annual screening mammograms. BIRADS: 1 - Negative. FOLLOW UP: 1 Year Follow-up DENSITY: There are scattered areas of fibroglandular density. The CAD lumber checker was used
== END 2024-11-27 09:19 | disposition home or self-care (01) ==
PROVIDERS: PCP Family Medicine; Visit Provider Family Medicine
DX: Z12.31 Encounter for screening mammogram for malignant neoplasm of breast (principal); R92.323 Mammographic fibroglandular density, bilateral breasts
CPT/HCPCS: 77063; 77067

== ENCOUNTER → 2025-01-06 09:42 | Outpatient (BNVA) | payer MEDICARE, OTHER, SELFPAY | PROVIDERS: PCP Family Medicine; Visit Provider Family Medicine | DX: D48.5 Neoplasm of uncertain behavior of skin (principal) | CPT/HCPCS: 88305; 88342 ==

== ENCOUNTER → 2025-01-13 15:08 | Outpatient (BNVA) | payer MEDICARE, OTHER, SELFPAY | PROVIDERS: PCP Family Medicine; Visit Provider Dermatology | DX: C43.72 Malignant melanoma of left lower limb, including hip (principal); L82.1 Other seborrheic keratosis; D23.62 Other benign neoplasm of skin of left upper limb, including shoulder; D23.5 Other benign neoplasm of skin of trunk; Z80.8 Family history of malignant neoplasm of other organs or systems | CPT/HCPCS: 99203 ==

== ENCOUNTER 2025-01-29 08:08 | Oncology outpatient (recurring) (ONCR) | payer MEDICARE, OTHER, SELFPAY ==
[2025-01-29 09:08] LABS: Basophils # 0.1 10^3/uL (0.0-0.1); Eosinophils # 0.1 10^3/uL (0.0-0.8); Eosinophils % 2.4 %; Hematocrit 39.1 % (36-47); Lymphocytes # 1.4 10^3/uL (0.8-4.8); Lymphocytes % 26.9 %; Mean Corpuscular HGB Conc 32.5 g/dL (30-55); Mean Corpuscular Hemoglobin 30.1 pg (27-33); Mean Corpuscular Volume 92.7 fl (85-98); Mean Platelet Volume 11.5 fL (7.4-10.4); Monocytes # 0.5 10^3/uL (0.2-0.9); Monocytes % 9.4 %; Neutrophils # 3.02 10^3/uL (1.8-7.7); Neutrophils % 60.1 %; Nucleated Red Blood Cells % 0 %; Platelet Count 169 10^3/cmm (157-399); Red Blood Count 4.22 10^6/uL (3.85-5.65); Red Cell Distribution Width 13.2 % (12.1-15.1); White Blood Count 5.02 10^3/uL (3.29-11.43)
[2025-01-29 09:25] LABS: Alanine Aminotransferase 6 U/L (0-33); Albumin Level 3.9 g/dL (3.5-5.2); Alkaline Phosphatase 129 U/L (35-105); Anion Gap 11.7 (5-19); Aspartate Amino Transferase 17 U/L (0-32); Blood Urea Nitrogen 14 mg/dL (8-23); Calcium 9.3 mg/dL (8.5-10.5); Carbon Dioxide 29 mmol/L (22-29); Chloride 104 mmol/L (98-107); Creatinine Clr Calc Pharmacy 75.1487; Globulin 2.9 g/dL (1.3-4.6); Glomerular Filtration Rate 56.4 mL/min (90-130); Glucose 92 mg/dL (65-115); Lactate Dehydrogenase 208 U/L (135-214); Osmolality Calculated 290 mOsm/kg (285-295); Potassium 4.7 mmol/L (3.5-5.1); Sodium 140 mmol/L (136-145); Total Bilirubin 0.6 mg/dL (0.15-1.2); Total Protein 6.8 g/dL (6.6-8.7)
== END 2025-01-29 23:59 | disposition home or self-care (01) ==
PROVIDERS: PCP Family Medicine; Visit Provider Internal Medicine
DX: C43.72 Malignant melanoma of left lower limb, including hip (principal); E66.9 Obesity, unspecified; Z68.41 Body mass index [BMI] 40.0-44.9, adult
CPT/HCPCS: 36415; 80053; 83615; 85025; 99204

== ENCOUNTER 2025-02-13 08:45 | Oncology outpatient (recurring) (ONCR) | payer MEDICARE, OTHER, SELFPAY ==
--- NOTE | 2025-02-13 09:00 | PETR_ITS ---
PROCEDURE INFORMATION: Exam: PET/CT Whole Body Exam date and time: 02/13/2025 9:51 AM Age: 59 years old Clinical indication: Condition or disease; Primary cancer: Malignant melanoma of left lower limb; Initial oncological staging assessment; Prior surgery; Surgery date: 1-6 months; Surgery type: Left upper thigh melanoma lesion resection LABS AND CLINICAL REPORTS: Glucose: 115 mg/dl Treatment strategy for malignancy (PET staging): Initial Staging (PI) TECHNIQUE: Imaging protocol: Following at least four-hour fasting and following the injection of radiopharmaceutical, low dose CT images were obtained. Then, PET images were obtained. Attenuation corrected images were constructed using the CT scan. Fused images of PET and CT were reviewed. The standardized uptake values (SUV) reported below are maximum values within a region of interest, expressed in gm/ml. Exam includes the whole body. SUV normalization method: BodyWeight Radiopharmaceutical: 12.17 mCi F-18 FDG (Fluorodeoxyglucose), IV. Time of imaging post radiopharmaceutical administration: 54 minutes Injection site: right ac COMPARISON: No relevant prior studies available. FINDINGS: Brain: Photopenic fluid density anterior left middle cranial fossa area measures approximately 3.9 x 2.4 cm on axial image 544. Otherwise normal physiologic uptake. Pharynx: No abnormal uptake. Larynx: No abnormal uptake. Lungs, pleura and trachea: No abnormal uptake. Mild bilateral subsegmental atelectasis and/or scarring. No consolidation or mass. Heart: Normal physiologic uptake. Mediastinal space: No abnormal uptake. Diaphragm: Small hiatal hernia. Liver: No abnormal uptake. Gallbladder and biliary ducts: No abnormal uptake. Suspect cholelithiasis. Pancreas: No abnormal uptake. Spleen: No abnormal uptake. Adrenal glands: No abnormal uptake. Kidneys and ureters: Normal physiologic uptake. 5.4 cm anterior left renal mass with suggested peripheral low-level FDG uptake. Stomach and bowel: No abnormal uptake. Vasculature: No abnormal uptake. Mild systemic atherosclerotic calcification without aortic aneurysm. Lymph nodes: No abnormal uptake. No lymphadenopathy in the head, neck, chest, abdomen, pelvis, and extremities. Calcified mediastinal nodes in keeping with sequela of old granulomatous disease. Skeleton: Degenerative change along the axial skeletal system, bilateral shoulders, knees and feet. Soft tissues: Left inguinal photopenic fluid density collection measures 8.8 x 5.3 cm on axial image 312 and shows multiple surgical clips at its margin as well as smaller adjacent fluid density collection laterally, measuring approximately 5.6 x 2.2 cm on axial image 322. Adjacent low-level FDG uptake. Anterior left thigh subcutaneous stranding with couple small fluid collections, index measuring 2.4 x 1.5 cm on axial image 277, with overlying dermal thickening and skin kassy with associated low-level FDG uptake. METRICS: Mediastinal blood pool: SUV mean 1.8 Liver uptake: SUV mean 2.6 PET/PET WB melanoma INITIAL [id number] IMPRESSION: 1. Anterior left thigh postsurgical changes with couple of small fluid collections likely representing seromas and associated low-level FDG uptake. 2. Left inguinal postprocedural changes with index fluid density collection likely representing seroma measuring up to 8.8 cm. Adjacent low-level FDG uptake is likely postprocedural. 3. 5.4 cm anterior left renal mass with suggested peripheral low-level FDG uptake raises possibility of cystic neoplasm. Recommend nonemergent renal MRI or CT without and with contrast. 4. 3.9 cm photopenic fluid density anterior left middle cranial fossa area suggestive of arachnoid cyst, which could be further evaluated with brain MRI. 5. Additional chronic and incidental findings as above.
== END 2025-02-28 23:59 | disposition home or self-care (01) ==
LOC: RAD 08:45 → ONCMED 09:37
PROVIDERS: PCP Family Medicine; Visit Provider Internal Medicine
DX: C43.72 Malignant melanoma of left lower limb, including hip (principal); N28.89 Other specified disorders of kidney and ureter
CPT/HCPCS: 78816; A9552

== ENCOUNTER 2025-03-23 08:15 | Oncology outpatient (recurring) (ONCR) | payer MEDICARE, OTHER, SELFPAY ==
[2025-03-12 11:35] LABS: Basophils # 0.1 10^3/uL (0.0-0.1); Basophils % 0.8 %; Eosinophils # 0.2 10^3/uL (0.0-0.8); Eosinophils % 3.6 %; Hematocrit 36.1 % (36-47); Lymphocytes # 1.2 10^3/uL (0.8-4.8); Lymphocytes % 17.9 %; Mean Corpuscular HGB Conc 32.4 g/dL (30-55); Mean Corpuscular Hemoglobin 29.9 pg (27-33); Mean Corpuscular Volume 92.3 fl (85-98); Mean Platelet Volume 10.8 fL (7.4-10.4); Monocytes # 0.6 10^3/uL (0.2-0.9); Monocytes % 8.8 %; Neutrophils # 4.41 10^3/uL (1.8-7.7); Neutrophils % 68.1 %; Nucleated Red Blood Cells % 0 %; Platelet Count 264 10^3/cmm (157-399); Red Blood Count 3.91 10^6/uL (3.85-5.65); Red Cell Distribution Width 13.1 % (12.1-15.1); White Blood Count 6.47 10^3/uL (3.29-11.43)
[2025-03-12 11:56] LABS: Alanine Aminotransferase 7 U/L (0-33); Albumin Level 3.4 g/dL (3.5-5.2); Alkaline Phosphatase 122 U/L (35-105); Anion Gap 16.7 (5-19); Aspartate Amino Transferase 13 U/L (0-32); Blood Urea Nitrogen 11 mg/dL (8-23); Calcium 9.3 mg/dL (8.5-10.5); Carbon Dioxide 26 mmol/L (22-29); Chloride 101 mmol/L (98-107); Globulin 3.3 g/dL (1.3-4.6); Glomerular Filtration Rate 63.7 mL/min (90-130); Glucose 89 mg/dL (65-115); Lactate Dehydrogenase 196 U/L (135-214); Osmolality Calculated 287 mOsm/kg (285-295); Potassium 4.7 mmol/L (3.5-5.1); Sodium 139 mmol/L (136-145); Total Bilirubin 0.3 mg/dL (0.15-1.2); Total Protein 6.7 g/dL (6.6-8.7)
--- NOTE | 2025-03-23 08:15 | CT_ITS ---
WS: [id number] CT ABDOMEN WITHOUT CONTRAST HISTORY: left renal mass on PET scan Contiguous single phase 5 mm axial imaging performed to the abdomen. Oral contrast has not been provided. Coronal and sagittal reformats are submitted. All CT scans at [facility] use at least one of these dose optimization techniques: automated exposure control; mA and/or kV adjustment per patient size (includes targeted exams where dose is matched to clinical indication); or iterative reconstruction. IV CONTRAST: None Oral contrast: None DLP: 591.48 mGy.cm COMPARISON: PET/CT 02/13/2025 Lower thorax: Lung bases are clear. Heart is normal size. No hiatal hernia. Liver/biliary system: Normal size with no intrahepatic dilatation. Gallbladder: Normally distended. No adjacent inflammation. Minimal heterogeneity within the gallbladder. May indicate some sludge. There is no adjacent inflammation. Pancreas: Normal size pancreas and pancreatic duct. No adjacent inflammation. Spleen: Normal size spleen. No mass or infarct. Adrenal glands: Normal. Right kidney: Normal. Left kidney: Normal size kidney. No obstruction. Complex well-circumscribed low- attenuation mass from the upper to mid LEFT kidney extending laterally. Mass measures 4.7 x 5.0 x 5.5 cm. There is a tiny calcification within the wall of this mass. This mass is not a simple cyst. Further evaluation cannot be performed on a noncontrast exam. Aorta: Mild atherosclerosis with no aneurysm. Lymphadenopathy: None. Free fluid: None. GI tract: As visualized negative. No obstruction. Abdominal wall: Unremarkable abdominal wall. No hernia. Visualized osseous structures: Mild anterior wedging of T7, T8, T9 and T10. No destructive bone lesions. CT/CT abdomen wo con [id number] IMPRESSION: 1. Mildly heterogeneous LEFT renal mass measures 4.7 x 5.0 x 5.5 cm. This mass cannot be further evaluated on a noncontrast CT evaluation. Recommend follow-u p CT or MRI with and without IV contrast. This is not a simple cyst. 2. No ascites or adenopathy.
== END 2025-03-30 23:59 | disposition home or self-care (01) ==
LOC: RAD 03-24 00:01 → ONCMED 03-24 10:01
PROVIDERS: Nurse Practitioner; PCP Family Medicine; Visit Provider Family Medicine
DX: Z53.9 Procedure and treatment not carried out, unspecified reason; N28.89 Other specified disorders of kidney and ureter; I70.0 Atherosclerosis of aorta; M48.54XA Collapsed vertebra, not elsewhere classified, thoracic region, initial encounter for fracture
CPT/HCPCS: 36415; 74150; 80053; 83615; 85025; 99215

== ENCOUNTER 2025-04-01 08:45 | Oncology outpatient (recurring) (ONCR) | payer MEDICARE, OTHER, SELFPAY ==
--- NOTE | 2025-04-01 08:45 | MR_ITS ---
WS: [id number] MRI BRAIN WITH AND WITHOUT CONTRAST HISTORY: abnormal pet scan, brain abnormality COMPARISON: PET/CT 02/13/2025 TECHNIQUE: Multiplanar imaging performed through the brain with MultiHance 20 ml's IV. No acute infarcts are seen. Rodarte-white matter differentiation is well preserved. Cystic collection in the anterior LEFT middle cranial fossa does not enhance. Collection measures 4.1 x 2.5 x 2.6 cm and follow CSF on all sequences. There is mass effect upon the LEFT temporal lobe. There is no soft tissue component. This corresponds to the PET/CT findings and is consistent with an arachnoid cyst. Mild bilateral frontal lobe atrophy. No prior infarcts. Minimal small vessel disease. Prominent perivascular space RIGHT temporal lobe. Mild hippocampal atrophy, LEFT greater than RIGHT. No susceptibility artifacts or prior lacunar infarcts. Normal sized ventricles. Clivus and pituitary gland are normal. Visualized posterior fossa and brainstem are also normal. Postcontrast images are negative for masses or vascular malformations. Dural venous sinuses are normal. Paranasal sinuses: Minimal mucoperiosteal thickening maxillary and ethmoid air cells. No air-fluid levels. Mastoid air cells: Normal. Calvarium and scalp: Normal. MR/MR head wo/w con [id number] IMPRESSION: 1. No metastatic disease to the brain. 2. RIGHT middle cranial fossa arachnoid cyst measures 4.1 x 2.5 x 2.6 cm. 3. Mild cerebral atrophy and hippocampal atrophy. 4. No significant small vessel disease.
[2025-04-01] MEDS: gadobenate dimeglumine 20 mL vial IV (09:34)
== END 2025-04-30 23:59 | disposition home or self-care (01) ==
PROVIDERS: PCP Family Medicine; Visit Provider Family Medicine
DX: C43.72 Malignant melanoma of left lower limb, including hip (principal); G93.0 Cerebral cysts; G31.89 Other specified degenerative diseases of nervous system
CPT/HCPCS: 70553; A9577

== ENCOUNTER 2025-04-10 11:19 | Outpatient (CLI) | payer MEDICARE, OTHER, SELFPAY ==
--- NOTE | 2025-04-10 11:45 | MRR_ITS ---
PROCEDURE INFORMATION: Exam: MR Abdomen Without Contrast Exam date and time: 04/10/2025 12:11 PM Age: 59 years old Clinical indication: Abnormal findings; Abnormal radiologic finding of the abdomen; Radiologic exam and body structure: CT; Prior surgery; Surgery date: 6+ months; Surgery type: Melanoma removed upper thigh; Additional info: L renal mass on CT and pet; HX of melanoma TECHNIQUE: Imaging protocol: Magnetic resonance imaging of the abdomen without contrast. COMPARISON: CT abdomen wo con [id number] 03/23/2025 8:29 AM FINDINGS: Liver: No mass. Gallbladder and biliary ducts: Unremarkable. No stones. No ductal dilation. Pancreas: Unremarkable. No ductal dilation. Spleen: Unremarkable. No splenomegaly. Adrenal glands: Unremarkable. No mass. Kidneys: There is a rounded 5.5 cm diameter heterogeneous soft tissue mass arising from the upper pole of the left kidney. The mass has a smooth outer border and contains heterogeneous soft tissue along with partial fluid component. With IV contrast there is a thick, irregular enhancing outer wall with complex fluid centrally. Stomach and bowel: Visualized stomach and intestines are unremarkable. Intraperitoneal space: No free fluid. Vasculature: No abdominal aortic aneurysm. Lymph nodes: No enlarged nodes. Bones/joints: Unremarkable. No suspicious lesions. Soft tissues: See Kidneys finding. MR/MR abdomen wo/w con* [id number] IMPRESSION: 5.5 cm complex cystic mass of the left kidney most likely representing renal cell carcinoma
[2025-04-10] MEDS: gadobenate dimeglumine 20 mL vial IV (12:27)
== END 2025-04-10 11:20 | disposition home or self-care (01) ==
LOC: RAD 11:20
PROVIDERS: PCP Family Medicine; Visit Provider Family Medicine
DX: N28.89 Other specified disorders of kidney and ureter (principal)
CPT/HCPCS: 74183; A9577

== ENCOUNTER → 2025-04-13 09:13 | Outpatient (BNVA) | payer MEDICARE, OTHER, SELFPAY | PROVIDERS: PCP Family Medicine; Visit Provider Dermatology | DX: C43.72 Malignant melanoma of left lower limb, including hip (principal); L82.1 Other seborrheic keratosis; D23.62 Other benign neoplasm of skin of left upper limb, including shoulder; D23.71 Other benign neoplasm of skin of right lower limb, including hip; D23.5 Other benign neoplasm of skin of trunk; L81.4 Other melanin hyperpigmentation; Z80.8 Family history of malignant neoplasm of other organs or systems | CPT/HCPCS: 99213 ==

== ENCOUNTER → 2025-05-04 09:56 | Outpatient (BNVA) | payer MEDICARE, OTHER, SELFPAY | PROVIDERS: PCP Family Medicine; Visit Provider Family Medicine | DX: Z11.59 Encounter for screening for other viral diseases (principal); Z11.4 Encounter for screening for human immunodeficiency virus [HIV]; E11.9 Type 2 diabetes mellitus without complications | CPT/HCPCS: 83036; 86803; 87806 ==

== ENCOUNTER → 2025-07-20 09:02 | Outpatient (BNVA) | payer MEDICARE, OTHER, SELFPAY | PROVIDERS: PCP Family Medicine; Visit Provider Dermatology | DX: C43.72 Malignant melanoma of left lower limb, including hip (principal); L82.1 Other seborrheic keratosis; D23.62 Other benign neoplasm of skin of left upper limb, including shoulder; D23.71 Other benign neoplasm of skin of right lower limb, including hip; D22.5 Melanocytic nevi of trunk; D22.71 Melanocytic nevi of right lower limb, including hip; D22.72 Melanocytic nevi of left lower limb, including hip; D23.5 Other benign neoplasm of skin of trunk; L81.4 Other melanin hyperpigmentation; Z80.8 Family history of malignant neoplasm of other organs or systems | CPT/HCPCS: 99213 ==

== ENCOUNTER 2025-08-15 18:41 | Emergency (ER) | payer MEDICARE, OTHER, SELFPAY ==
[2025-08-15 18:57] VITALS: BP 122/73; PULSE 49; RESP 18; TEMP 36.6; O2SAT 99; BMI 39.9
--- OUTSIDE RECORDS SUMMARY | 2025-08-15 19:08 | XMS_ITS | Clinical Summary ---
Author Organization [facility] Address [address] [facility] Attn: Epic Prelude ADT MARITA BRADSHAW [id number] Care Team Providers Care Bailer Operators Supervisor Name Role Phone Kathrine Hernandez, KAREEM, Fransisco Patel Primary Care Pro vider Allergies Active Allergy Reactions Criticality Noted Date Comments Levofloxacin Nausea and Vomiting Low 06/23/2019 Medications lisinopriL (PRINIVIL) 40 mg tablet Take 40 mg by mouth 2 times daily. 06/23/2019 Active ALPRAZolam (XANAX) 0.5 mg tablet Take 0.5 mg by mouth 1 time daily as needed for Anxiety. 06/23/2019 Active pravastatin (PRAVACHOL) 80 mg tablet Take 80 mg by mouth daily at bedtime. 06/23/2019 Active amLODIPine (NORVASC) 10 mg tablet Take 10 mg by mouth. 06/23/2019 Active FLUoxetine (PROzac) 40 mg capsule Take 40 mg by mouth. 06/23/2019 Active metFORMIN (GLUCOPHAGE) 500 mg tablet Take 500 mg by mouth. 06/23/2019 Active Social History Tobacco Use Types Packs/Day Years Used Date Smoking Tobacco: Never Smokeless Tobacco: Never Comments Unknown Sex and Gender Information Value Date Recorded Sex Assigned at Not on file Legal Sex Female 8:00 AM [employer] Gender Identity Not on file Sexual Orientation Not on file Last Filed Vital Signs Vital Sign Reading Time Taken Comments Blood Pressure 154/93 06/23/2019 8:03 PM CDT Pulse - - Temperature 36.6 C (97.8 F) 06/23/2019 8:03 PM CDT Respiratory Rate 16 06/23/2019 8:03 PM CDT Oxygen Saturation - - Inhaled Oxygen Concentration - - Weight 128.8 kg (284 lb) 06/23/2019 8:03 PM CDT Height 165.1 cm (5' 5 ) 06/23/2019 8:03 PM CDT Body Mass Index 47.26 06/23/2019 8:03 PM CDT Plan of Treatment Health Maintenance Due Date Last Done Comments DTAP/TDAP/TD VACCINES (1 - Tdap) 1982 HPV/Cotest (21-29) 1984 CERVICAL CANCER SCREENING 1993 HPV/Cotest (30-65) 1993 PAP SMEAR 1993 BREAST CANCER SCREENING 2003 COLORECTAL SCREENING 2008 Colorectal Cancer Screening 2008 FIT-DNA Q 3 years 2008 FIT/FOBT Q 1 year 2008 Flex Sig/CT Colonography Q 5 years 2008 ZOSTER VACCINE (1 of 2) 2013 INFLUENZA VACCINE (#1) 2025 RSV VACCINE (60+ or ) (1 - 1-dose 75+ series) 2038 Care Teams Bailer Operators Supervisor Relationship Specialty Start Date End Date Kathrine Hernandez, KAREEM Dejesus [address] [place], [place] [id number] PCP - General NURSE PRACTITIONER 10/04/18
[2025-08-15 19:22] LABS: Glucose Urine UA Negative (Normal); Nitrate Urine Negative (Negative); Specific Gravity, Urine 1.013 (1.005-1.030)
[2025-08-15 19:27] LABS: Add Urine Microscopic? YES
[2025-08-15 19:37] LABS: Hematocrit 36.1 % (36-47); Hemoglobin 11.90 g/dL (11.27-16.99); Mean Corpuscular HGB Conc 33.0 g/dL (30-55); Mean Corpuscular Hemoglobin 29.1 pg (27-33); Mean Corpuscular Volume 88.3 fl (85-98); Nucleated Red Blood Cells % 0 %; Platelet Count 189 10^3/cmm (157-399); Red Blood Count 4.09 10^6/uL (3.85-5.65); White Blood Count 5.70 10^3/uL (3.29-11.43)
--- NOTE | 2025-08-15 19:37 | XRR_ITS ---
PROCEDURE INFORMATION: Exam: XR Abdomen Exam date and time: 08/15/2025 7:49 PM Age: 59 years old Clinical indication: Abdominal pain; Prior surgery; Surgery date: 6+ months; Surgery type: Lt nephrectomy, melanoma removed from lt upper thigh, gb x 1 week ago; Additional info: Abdominal pain/distention; Post op cholecystectomy x 1 week ago; Constipation since TECHNIQUE: Imaging protocol: Radiologic exam of the abdomen. Views: Frontal supine view of the abdomen. 1 View. COMPARISON: MR abdomen wo/w con* [id number] 04/10/2025 12:11 PM FINDINGS: Gastrointestinal tract: Nonspecific gaseous distension of multiple large bowel loops. Nonobstructive and nonspecific bowel gas pattern of the small bowel. Bones/joints: Unremarkable. XR/XR KUB portable [id number] IMPRESSION: As above.
[2025-08-15 19:54] LABS: Alanine Aminotransferase 9 U/L (0-33); Albumin Level 4.1 g/dL (3.5-5.2); Alkaline Phosphatase 146 U/L (35-105); Anion Gap 13.8 (5-19); Aspartate Amino Transferase 23 U/L (0-32); Blood Urea Nitrogen 15 mg/dL (8-23); Calcium 9.9 mg/dL (8.5-10.5); Carbon Dioxide 31 mmol/L (22-29); Chloride 100 mmol/L (98-107); Globulin 3.1 g/dL (1.3-4.6); Glucose 96 mg/dL (65-115); Osmolality Calculated 291 mOsm/kg (285-295); Potassium 4.8 mmol/L (3.5-5.1); Sodium 140 mmol/L (136-145); Total Protein 7.2 g/dL (6.6-8.7)
--- NOTE | 2025-08-15 19:56 | W.ED.ABDPA2 ---
HPI - Abdominal Pain General: Chief Complaint: Abdominal Pain Stated Complaint: post surg, no poop, abd pain Time Seen by Provider: 08/15/25 19:34 History of Present Illness: Patient is 59-year-old female with diagnosis of multiple myeloma 02/12 here, HTN, presented to the ED with abdominal pain. Content: Patient had cholecystectomy 1 week ago at [facility]. She stated she called her doctor yesterday to tell them she has not had a bowel movement, and they asked her to drink more water. She has increasing abdominal pain on the left lower quadrant left mid quadrant. Precipitating factors: Patient had nephrectomy in May due to RCC. She was then referred by her nephrectomy surgeon to a surgeon in [place] for cholecystectomy. During her recent nephrectomy, she has a ventral hernia. Her laparoscopic cholecystectomy has a port hole in her ventral hernia that was planned to be fixed at later juncture. She does not have her pain by her ventral hernia. She is passing gas, however no bowel movement. Associated Symptoms: Reports change in bowel habits and constipation; Denies chills, diarrhea, fever(s), heartburn, hematochezia, nausea, syncope and vomiting Related Data Previous Rx's ?Medication ?Instructions ?Recorded Achilles wedge #1 ea 09/06/20 semaglutide 1 mg/dose (4 mg/3 mL) 1 mg (0.75 mL) SUBCUT .q7 days 4 11/21/24 subcutaneous pen injector (Ozempic) weeks #12 mL potassium chloride 20 mEq 20 meq PO DAILY #30 tabs 01/25/25 tablet,extended release lisinopril 20 mg tablet 20 mg PO DAILY blood 02/06/25 pressure/kidney #90 tabs fluoxetine 40 mg capsule 80 mg (2 x 40 mg) PO QAM Mental 02/21/25 health #180 caps diazepam 5 mg tablet (Valium) 5 mg PO DAILY #3 tabs 03/12/25 pravastatin 80 mg tablet 80 mg PO DAILY cholesterol #90 tabs 03/16/25 metformin 500 mg tablet,extended 500 mg PO DAILY diabetes #90 tabs 04/14/25 release 24 hr furosemide 40 mg tablet 40 mg PO BID #45 tabs 05/05/25 alprazolam 0.5 mg tablet 0.5 mg PO BID PRN anxiety #60 tabs 06/19/25 zolpidem 10 mg tablet 10 mg PO .hs PRN insomnia 30 days 06/19/25 #30 tabs lactulose 10 gram/15 mL oral 30 g (45 mL) PO Q2H 48 hours 08/15/25 solution #1,080 mL Allergies Allergy/AdvReac Type Severity Reaction Status Date / Time Cephalosporins Allergy Unknown Verified 08/12/25 08:50 levofloxacin (From Levaquin) Allergy Unknown Verified 08/12/25 08:50 Review of Systems Const: Denies: fever(s), chills, body aches, fatigue or night sweats Eyes: Denies: change in vision or blurry vision ENMT: Denies: odynophagia, hoarseness, mouth pain, oral sores or change in hearing Card: Denies: chest pain, palpitations, irregular heart rhythm, edema, syncope, dyspnea on exertion or orthopnea Resp: Denies: productive cough, wheezing or hemoptysis GI: Reports: abdominal pain, constipation and change in bowel habits; Denies: nausea, vomiting, dysphagia, heartburn, diarrhea or hematochezia : Denies: difficulty voiding, urinary frequency, urinary urgency or urinary hesitancy Musc: Denies: neck pain, back pain, extremity pain, extremity swelling, joint pain, joint swelling, joint warmth or joint stiffness Skin/Breast: Denies: rash or skin swelling Neuro: Denies: headache(s), numbness in extremities, weakness in extremities, lack of coordination, difficulty walking or frequent falls Psych: Denies: anxiety, depression or mood swings Endo: Denies: flushing or hot flashes Shaheen/Lymph: Denies: easy bruising, easy bleeding or enlarged lymph nodes All/Imm: Denies: urticaria, throat swelling or tongue swelling PFSH ED PFSH: Medical History (Updated 08/15/25 @ 20:33 by CHAO Montero) Left renal mass on PET scan 02/22; on CT 03/25; 5.5cm L complex mass--concerning for renal cell CA Malignant melanoma bx proven 01.12.25--L anterior thigh--L anterior thigh excision and inguinal lymph node removal--seeing Dr. Franklin Bilateral lower extremity edema Adjustment insomnia Asymptomatic bradycardia Obesity (BMI 35.0-39.9 without comorbidity) Allergic rhinitis due to allergen Plantar fasciitis, left CKD (chronic kidney disease) stage 2, GFR 60-89 ml/min Depression Hyperlipidemia associated with type 2 diabetes mellitus Anxiety Calculus of distal ureter HTN (hypertension), benign Type 2 diabetes mellitus without complication, without long-term current use of insulin Surgical History Hx of abdominal surgery L lower abdominal surgery in [place] 03/2025 for infection/sepsis after the melanoma excision Hx of melanoma excision 2024 L anterior thigh and inguinal lymph node --DR. Franklin Status post colonoscopy (05/25/20) Diverticulosis only; 05.25.20--repeat 10 yrs S/P TRE-BSO Status post right rotator cuff repair (Unknown) History of carpal tunnel release of both wrists History of bladder repair surgery X 3 Family History (Updated 05/04/25 @ 09:42 by Nicole Rizo MD) Family/Other Cancer uncle- colon cancer Mother Cancer bladder and melanoma CAD (coronary artery disease) Father , at age 84 COPD (chronic obstructive pulmonary disease) Sister CAD (coronary artery disease) 63 and 66 Denies family history of Anesthesia complication Bleeding disorder Social History Smoking and tobacco/nicotine status: never used tobacco/nicotine Second hand smoke exposure: Yes Alcohol intake: current Alcohol intake frequency: holidays/special occasions only Substance/Drug Use: never Household members: spouse and other Details: raising granddaughter Marital status: Number of children: 4 Highest education level completed: 10th Grade Current occupational status: disabled Previous occupational history: disabled for difficulty standing; carpal tunnel pain after surgeries Physical Exam Const: COMMON NORMALS: no acute distress, average body habitus and patient oriented x3 HENMT: COMMON NORMALS: normocephalic, atraumatic, hearing grossly normal bilaterally and TM's normal bilaterally HEAD & SCALP: normocephalic and atraumatic TYMPANIC MEMBRANE: TM's normal bilaterally Lymph: LYMPHATIC: no lymphadenopathy noted Chest: COMMONS NORMALS: normal inspection of the chest and normal palpation of entire chest wall Resp: COMMON NORMALS: normal respiratory effort, No retractions and No use of accessory muscles Cardio: COMMON NORMALS: regular rate and regular rhythm RATE: regular rate RHYTHM: regular rhythm GI: COMMON NORMALS: Normal to inspection, nondistended, normoactive bowel sounds present, Soft to palpation, non-tender and No hepatosplenomegaly present PALPATION: Yes Soft to palpation and Yes No hepatosplenomegaly present : COMMON NORMALS: Yes no CVA tenderness BLADDER/KIDNEY EXAM: Yes no CVA tenderness Back/Pelvis: COMMON NORMALS: no CVA tenderness Extremity: COMMON NORMALS: normal to inspection, full ROM and capillary refill normal Neuro: COMMON NORMALS: patient oriented x3, CN's II-XII intact bilaterally and moves all extremities Course Vital Signs: Vital signs: Vital Signs Temperature 97.9 F 08/15/25 18:57 Pulse Rate 50 L 08/15/25 20:16 Respiratory Rate 18 08/15/25 18:57 Blood Pressure 127/75 08/15/25 20:16 Pulse Oximetry 92 08/15/25 20:16 Oxygen Delivery Me thod Room Air 08/15/25 20:16 MDM - Abdominal Pain Medical Decision Making Patient is a 59-year-old female status post nephrectomy in May, status postcholecystectomy laparoscopy 1 week ago, ongoing constipation. She has normal active bowel sounds. She is passing gas. She has nonspecific bowel gas on x-ray. She does have association of KAREN with her creatinine of 1.8. Patient has baseline of 1. Will hold metformin, lisinopril, furosemide, and have patient repeat labs in 2 days with primary care. Medical Records I reviewed the patient's medical records. Lab Data I reviewed the patient's lab results. 08/15/25 19:31 08/15/25 19:31 Labs/Radiology: Radiology Impressions KUB X-Ray 08/15/25 19:37 IMPRESSION: As above. Laboratory Results WBC 5.70 10^3/uL (3.29-11.43) 08/15/25 19:31 RBC 4.09 10^6/uL (3.85-5.65) 08/15/25 19:31 Hgb 11.90 g/dL (11.27-16.99) 08/15/25 19:31 Hct 36.1 % (36-47) 08/15/25 19:31 MCV 88.3 fl (85-98) 08/15/25 19: MCH 29.1 pg (27-33) 08/15/25 19: MCHC 33.0 g/dL (30-55) 08/15/25 19:31 RDW 13.1 % (12.1-15.1) 08/15/25 19: Plt Count 189 10^3/cmm (157-399) 08/15/25 19: MPV 11.0 fL (7.4-10.4) H 08/15/25 19: Neut % (Auto) 58.2 % 08/15/25: Lymph % (Auto) 23.0 % 08/15/25: [place] % (Auto) 10.2 % 08/15/25 19: Eos % (Auto) 7.5 % 08/15/25: Baso % (Auto) 0.9 % 08/15/25: Neut # (Auto) 3.32 10^3/uL (1.8-7.7) 08/15/25: Lymph # (Auto) 1.3 10^3/uL (0.8-4.8) 08/15/25: [place] # (Auto) 0.6 10^3/uL (0.2-0.9) 08/15/25 19: Eos # (Auto) 0.4 10^3/uL (0.0-0.8) 08/15/25: Baso # (Auto) 0.1 10^3/uL (0.0-0.1) 08/15/25 19: Nucleated RBC % (auto) 0 % 08/15/25: Nucleated RBCs # 0.0 /100WBC 08/15/25 19: Sodium 140 mmol/L (136-145) 08/15/25 19: Potassium 4.8 mmol/L (3.5-5.1) 08/15/25 19: Chloride 100 mmol/L (98-107) 08/15/25 19: Carbon Dioxide 31 mmol/L (22-29) H 08/15/25 19:31 Anion Gap 13.8 (5-19) 08/15/25 19:31 BUN 15 mg/dL (8-23) 08/15/25 19: Creatinine 1.8 mg/dL (0.5-0.9) H 08/15/25 19: GFR Calculation 28.6 mL/min (90-130) L 08/15/25: Glucose 96 mg/dL (65-115) 08/15/25: Calculated Osmolality 291 mOsm/kg (285-295) 08/15/25 Calcium 9.9 mg/dL (8.5-10.5) 08/15/25 Total Bilirubin 0.4 mg/dL (0.15-1.2) 08/15/25 AST 23 U/L (0-32) 08/15/25 ALT 9 U/L (0-33) 08/15/25 Alkaline Phosphatase 146 U/L (35-105) H 08/15/25 Total Protein 7.2 g/dL (6.6-8.7) 08/15/25 Albumin 4.1 g/dL (3.5-5.2) 08/15/25 Globulin 3.1 g/dL (1.3-4.6) 08/15/25 Urine Color Yellow (Yellow) 08/15/25: Urine Appearance Clear (CLEAR) 08/15/25: Urine pH 7.0 (5-7) 08/15/25: Ur Specific [place] 1.013 (1.005-1.030) 08/15/25: Urine Protein Negative (Negative) 08/15/25: Urine Glucose (UA) Negative (Normal) 08/15/25: Urine Ketones Negative (Negative) 08/15/25: Urine Blood Trace (Negative) A 08/15/25: Urine Nitrate Negative (Negative) 08/15/25: Urine Bilirubin Negative (Negative) 08/15/25: Urine Urobilinogen 1.0 mg/dL (Negative) 08/15/25: Ur Leukocyte Esterase Negative (Negative) 08/15/25: Urine RBC 3-5 /hpf (0-2) 08/15/25 19: Urine WBC 0-5 /hpf (0-5) 08/15/25 19: Ur Squamous Epith Cells 0-5 /hpf (0-5) 08/15/25: Amorphous Sediment Not Reportable 08/15/25 19: Urine Bacteria None seen /hpf (NONE) 08/15/25 19:00 Hyaline Casts 2.05 /lpf 08/15/25 19:00 XR interpretation done by ED provider, pending radiology final review ED provider radiology interpretation(s): Nonspecific bowel gas pattern Discharge Plan Discharge Patient Disposition: Home Clinical Impression: KAREN (acute kidney injury) Constipation Qualifiers: Constipation type: drug induced constipation Qualified Code(s): K59.03 - Drug induced constipation Condition: Stable Prescriptions: New lactulose 10 gram/15 mL solution 30 g PO Q2H 2 Days Qty: 1080 0RF Rx Instructions: until desired laxative effect No Action (DME) Achilles wedge See Rx Instructions .Route .MEDSUPPLY Qty: 1 0RF Rx Instructions: As directed Ozempic 1 mg/dose (4 mg/3 mL) pen injector 1 mg SUBCUT .q7 days 28 Days Qty: 12 3RF diazepam [Valium] 5 mg tablet 5 mg PO DAILY Qty: 3 0RF Rx Instructions: 45-60 minutes before MRI and may repeat in 1 hour potassium chloride 20 mEq tablet extended release 20 meq PO DAILY Qty: 30 5RF lisinopril 20 mg tablet 20 mg PO DAILY Qty: 90 3RF fluoxetine 40 mg capsule 80 mg PO QAM Qty: 180 1RF pravastatin 80 mg tablet 80 mg PO DAILY Qty: 90 3RF metformin 500 mg tablet extended release 24 hr 500 mg PO DAILY Qty: 90 3RF Rx Instructions: reduce to 1 tab daily furosemide 40 mg tablet 40 mg PO BID Qty: 45 5RF Rx Instructions: One tablet in am and 1/2 tablet in early pm. zolpidem 10 mg tablet 10 mg PO .hs PRN (Reason: insomnia) 30 Days Qty: 30 2RF alprazolam 0.5 mg tablet 0.5 mg PO BID PRN (Reason: anxiety) Qty: 60 2RF Discharge Orders: Discharge ED (Routine); Ordered 08/15/25 Ordered By: Rita Vidales Referrals: Jl Mallory MD [Physician, General Surgery] - 1 week Nicole Rizo MD [Primary Care Provider, Family Practice] Discharge Diet: Clear Liquid Patient Instructions: Constipation (ED), Acute Kidney Injury (DC), Clear Liquid Diet (ED), Abdominal Pain (ED), Pain Management, Patient Portal & [facility] Instructions, Opioid Safety Activity Restrictions/Additional Instructions: - Hold your Ozempic -Hold your lisinopril -Hold your metformin -Hold your furosemide -Repeat your kidney function next week -Clear liquid diet until all your symptoms resolve -Take senna S x2 at night -Lactulose was sent to the pharmacy -Take a daily probiotic x 2 -Do not use Metamucil or fiber agent until you are having stools - Contact your primary surgeon regarding your abdominal pain on Sunday, regarding your complications from their surgery. - You may have a consultation with local surgeon for ventral hernia if you would like to stay locally. Thank you for choosing [facility] for your healthcare needs today. You have been screened and evaluated and felt safe for discharge. Health conditions do change or evolve sometimes and as such it is important that you follow up with your Primary Doctor to be re checked, 3-5 days is a general good time frame for follow up. You are always welcome to return to the ED for re assessment if your symptoms are worsening or you have new concerns Print Language: Marshallese Coding Level of Care Code ED [employer] Registrar for Greg Wan
[2025-08-15] MEDS: lactulose oral liq 20 gm/30 mL UDC 30 GM PO ×4 (20:11→22:31)
[2025-08-15 20:16] VITALS: BP 127/75; PULSE 50; O2SAT 92
== END 2025-08-15 22:41 | disposition home or self-care (01) ==
PROVIDERS: Emergency Medicine; Emergency Provider Physician Assistant; PCP Family Medicine
DX: K59.03 Drug induced constipation (principal); N17.9 Acute kidney failure, unspecified; Z79.84 Long term (current) use of oral hypoglycemic drugs; Z85.528 Personal history of other malignant neoplasm of kidney; E78.5 Hyperlipidemia, unspecified; E11.22 Type 2 diabetes mellitus with diabetic chronic kidney disease; I12.9 Hypertensive chronic kidney disease with stage 1 through stage 4 chronic kidney disease, or unspecified chronic kidney disease; N18.2 Chronic kidney disease, stage 2 (mild)
CPT/HCPCS: 36415; 74018; 80053; 81001; 85025; 99285; J7030; J9999